=== PATIENT | female | born 1950 | race Caucasian/White ===

== ENCOUNTER 2020-02-10 20:12 | Emergency (ER) | payer MEDICARE, OTHER ==
[~2020-02-10] VITALS: Ht 165.1 cm; Wt 100.0 kg
[~2020-02-10 20:12] MED LIST: ALLO300T PO; ASPI-482 PO; COLC0.6T34 PO; DOXY50CA PO; GLIP5TAB22 PO; METF500T16 PO; METO-269 PO; NAPR-514 PO; TRIA1TAB3 PO
[2020-02-10 20:27] VITALS: BP 170/75
--- NOTE | 2020-02-10 20:34 | PHYS DOC ---
Past Medical History Past Medical History: Diabetes-Type II, Hypertension Drug Use: None General Adult EDM: Chief Complaint: KNEE INJURY HPI: HPI: Patient is a 70 year old female who felt a pop in her right knee behind her knee while walking down the stairs this evening. Patient states she has no pain at rest but 8 out of 10 pain that is nonradiating described as painful behind her knee when she puts weight on her leg. Patient states she has had some instability in that knee over the last couple weeks. Patient denies falling and injuring any other part of her body. Patient denies any focal weakness or numbness. Review of Systems: Review of Systems: Constitutional: Denies fever or chills Eyes: Denies change in visual acuity HENT: Denies sore throat Respiratory: Denies cough or shortness of breath Cardiovascular: Denies chest pain or edema GI: Denies abdominal pain, nausea, vomiting, or diarrhea : Denies dysuria Musculoskeletal: Denies back pain but complains of right knee pain Integument: Denies rash Neurologic: Denies headache or focal weakness Psychiatric: Denies depression or anxiety Heart Score: Risk Factors: Risk Factors: DM, Current or recent (<one month) smoker, HTN, HLP, family history of CAD, obesity. Risk Scores: Score 0 - 3: 2.5% MACE over next 6 weeks - Discharge Home Score 4 - 6: 20.3% MACE over next 6 weeks - Admit for Clinical Observation Score 7 - 10: 72.7% MACE over next 6 weeks - Early Invasive Strategies Allergies: Allergies: Allergies Coded Allergies Type Severity Reaction Last Updated Verified hydrocodone Allergy Unknown 05/14/16 Yes oxycodone Allergy Unknown 05/14/16 Yes Physical Exam: PE: Constitutional: Well developed, well nourished, no acute distress, non-toxic appearance. HENT: No trismus, external ears normal Eyes: Conjunctiva clear, EOMI Neck: Normal range of motion, no tenderness, supple, no stridor. 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 No obvious laxity of the joint. Mild pain with range of motion. No significant effusion. Neurovascular intact distally. No erythema or warmth to the joint. Remainder extremities unremarkable. Neurologic: Alert and oriented X 3, normal motor function, , no focal deficits noted. Psychologic: Affect normal, judgement normal, mood normal. Current Patient Data: Vital Signs: Vital Signs Date Time Temp Pulse Resp B/P (MAP) Pulse Ox O2 Delivery O2 Flow Rate FiO2 02/10/20 20:27 97.5 96 18 170/75 (106) 96 Room Air 97.5 EKG: EKG: [] Radiology/Procedures: Radiology/Procedures: [][facility] [address] [place] [address] IMAGING REPORT Signed PATIENT: МАРИЯ RANDLE ACCOUNT: [id number] : 1950 LOCATION: ER AGE: 70 SEX: F EXAM STATUS: PRE ER ORD. 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 COMPARISON: None. FINDINGS: No fractures are identified. Joint spaces are maintained. There are tiny osteophytes along the medial compartment. Alignment is normal. There is no joint effusion. Atherosclerotic calcifications are noted. IMPRESSION: 1. 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 Electronically signed by: Corona Powers MD (02/10/2020 8:39 PM) [facility] DICTATED and SIGNED BY: MANUEL POWERS MD DATE: 02/10/202038 Course & Med Decision Making: Course & Med Decision Making Pertinent Labs and Imaging studies reviewed. (See chart for details) [] X-rays are negative. Patient was likely has a ligamentous strain or or hamstring tendon injury. Patient was placed in immobilizer and crutches and discharged with outpatient follow-up with orthopedist. Farzaneh Disclaimer: Farzaneh Disclaimer: This electronic medical record was generated, in whole or in part, using a voice recognition dictation system. Departure Departure Impression: Primary Impression: Right knee sprain Disposition: HOME, SELF-CARE Condition: STABLE Referrals: RODNEY BENNETT MD (PCP) WSAHINGTON HIGUERA MD 2-3 days Patient Instructions: Crutch Use, Knee Immobilization, Knee Sprain Additional Instructions: EMERGENCY DEPARTMENT GENERAL DISCHARGE INSTRUCTIONS THANK YOU for coming to [facility] Emergency Department (ED) today and trusting us with your care. We trust that you had a positive experience in our Emergency Department. If you wish to speak to the department Management you can contact the supervisor roving department at . YOUR FOLLOW UP INSTRUCTIONS ARE FOLLOWS: Do you have a private doctor? If you do not have a private doctor, please ask for a resource list of physicians or clinics that may be able to assist you with follow up care. The Emergency Physician has interpreted your x-rays. The X-ray specialist will also review them. If there is a change in the findings you will be notified in 48 hours when at all possible. A lab test or lab culture may have been done, your results will be reviewed and you will be notified if you need a change in treatment. ADDITIONAL INSTRUCTIONS AND INFORMATION Your care today has been supervised by a physician who is specially trained in emergency care. Many problems require more than one evaluation for a complete diagnosis and treatment. We recommend that you schedule your follow up appointment as recommended to ensure complete treatment of your illness or injury. If you are unable to obtain follow up care and continue to have a problem, or if your condition worsens we recommend that you return to the ED. We are not able to safely determine your condition over the phone nor are we able to give sound medical advice over the phone. For these safety reasons, if you call for medical advice we will ask you to come to the ED for further evaluation If you have any questions regarding these discharge instructions please call the ED at . SAFETY INFORMATION In the interest of safety, wellness, and injury prevention; we encourage you to wear your seatbelt, if you smoke; quit smoking, and we encourage your family to use protective helmet for bicycling and other sporting events that present an increased risk for head injury. IF YOUR SYMPTOMS WORSEN OR NEW SYMPTOMS DEVELOP, OR YOU HAVE CONCERNS ABOUT YOUR CONDITION; OR IF YOUR CONDITION WORSENS WHILE YOU ARE WAITING FOR YOUR FOLLOW UP APPOINTMENT; EITHER CONTACT YOUR PRIMARY CARE DOCTOR, THE PHYSICIAN WHOSE NAME AND NUMBER YOU WERE GIVEN, OR RETURN TO THE ED IMMEDIATELY. Scripts Ibuprofen (IBUPROFEN) 600 Mg Tablet 600 MG PO PRN Q6HRS PRN for PAIN, #20 TAB take with food or milk Prov: AMARI VILLEGAS MD 02/10/20 Tramadol Hcl (ULTRAM) 50 Mg Tablet 1 TAB PO PRN Q6HRS PRN for pain MDD 4 Tablet(s) for 5 Days, #20 TAB 0 Refills Prov: AMARI VILLEGAS MD 02/10/20 Justicifation of Admission Dx: Justifications for Admission: Justification of Admission Dx: N/A AMARI VILLEGAS MD Feb 10, 2020 20:34
--- NOTE | 2020-02-10 20:42 | RAD ---
EXAM: Right knee, 3 views HISTORY: Right knee pain. COMPARISON: None. FINDINGS: No fractures are identified. Joint spaces are maintained. There are tiny osteophytes along the medial compartment. Alignment is normal. There is no joint effusion. Atherosclerotic calcifications are noted. IMPRESSION: 1. 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 Electronically signed by: Corona Powers MD (02/10/2020 8:39 PM) [facility]
[2020-02-10] MEDS ORDERED: TRAM-48 PO (20:53)
[2020-02-10] MEDS ORDERED: IBUP-1007 PO (20:53)
[2020-02-10] MEDS ORDERED: traMADol 50 MG TABLET PO ONE (21:00)
[2020-02-10] MEDS ORDERED: IBUPROFEN 200 MG TABLET. PO ONE (21:00)
== END 2020-02-10 21:39 | disposition home or self-care (01) ==
LOC: ER 20:12
DX: S83.91XA Sprain of unspecified site of right knee, initial encounter (principal); M17.11 Unilateral primary osteoarthritis, right knee; E11.9 Type 2 diabetes mellitus without complications; I10 Essential (primary) hypertension; Z88.5 Allergy status to narcotic agent; X50.9XXA Other and unspecified overexertion or strenuous movements or postures, initial encounter; Y93.01 Activity, walking, marching and hiking; Y92.89 Other specified places as the place of occurrence of the external cause; Y99.8 Other external cause status
CPT/HCPCS: 29505; 73562; 96372; 99283; 99285

== ENCOUNTER 2020-05-25 14:39 | Emergency (ER) | payer MEDICARE, OTHER ==
[~2020-05-25] VITALS: Ht 165.1 cm; Wt 90.0 kg
[~2020-05-25 14:39] MED LIST changes: +IBUP-1007 PO; +TRAM-48 PO
[2020-05-25 14:58] VITALS: BP 155/81
--- NOTE | 2020-05-25 17:13 | ED.ADGEN ---
Past Medical History Past Medical History: Diabetes-Type II, High Cholesterol, Hypertension Additional Past Medical Histor: GOUT Past Surgical History: No Surgical History Smoking Status: Never Smoker Alcohol Use: Occasionally Drug Use: None General Adult EDM: Chief Complaint: OTHER COMPLAINTS HPI: HPI: Patient is a 70 year old female, accompanied by her , who presents to the emergency room with request for a tetanus shot. Patient states that it about 1300 she dropped a pair of akil lawn amara on top of her toe which caused it to bleed. She denies any decreased range of motion of the affected toe. She currently rates her pain 1 out of 10 on the pain scale, she denies any alleviating factors, the pain is worse with palpation. She denies any numbness, tingling, weakness of the affected extremity. The patient states that her toe stop bleeding after she put a Band-Aid on it. Review of Systems: Review of Systems: Complete ROS is negative unless otherwise noted in HPI. Allergies: Allergies: Allergies Coded Allergies Type Severity Reaction Last Updated Verified hydrocodone Allergy Unknown 05/14/16 Yes oxycodone Allergy Unknown 05/14/16 Yes Physical Exam: PE: See Above Constitutional: Well developed, well nourished, no acute distress, non-toxic appearance. [] HENT: Normocephalic, atraumatic, bilateral external ears normal, nose normal. [] Eyes: PERRLA, EOMI, conjunctiva normal, no discharge. [] Neck: Normal range of motion, no stridor. [] Cardiovascular:Heart rate regular rhythm Lungs & Thorax: Respirations even and unlabored, no retractions, no respiratory distress Skin: Warm, dry, no erythema, no rash; bruise with scabbed abrasion noted to the top of the left great toe, no active bleeding, no visible foreign body. [] Extremities: Left great toe no cyanosis, ROM intact, no edema. [] Neurologic: Alert and oriented X 3, no focal deficits noted. [] Psychologic: Affect normal, judgement normal, mood normal. [] Current Patient Data: Vital Signs: Vital Signs Date Time Temp Pulse Resp B/P (MAP) Pulse Ox O2 Delivery O2 Flow Rate FiO2 05/25/20 14:58 97.9 94 16 155/81 (105) 94 Room Air 97.9 EKG: EKG: [] Heart Score: Risk Factors: Risk Factors: DM, Current or recent (<one month) smoker, HTN, HLP, family history of CAD, obesity. Risk Scores: Score 0 - 3: 2.5% MACE over next 6 weeks - Discharge Home Score 4 - 6: 20.3% MACE over next 6 weeks - Admit for Clinical Observation Score 7 - 10: 72.7% MACE over next 6 weeks - Early Invasive Strategies Radiology/Procedures: Radiology/Procedures: [] Course & Med Decision Making: Course & Med Decision Making Pertinent Labs and Imaging studies reviewed. (See chart for details) 70-year-old female presented to the emergency room with request for a tetanus s hot after toe injury that happened this afternoon. I offered the patient an x- ray of her toe however she declined and stated that she could move her toe and did not think it was broken. Patient was given a tetanus shot as requested, she could not remember when her last tetanus shot was. Patient encouraged to follow-up with her primary care doctor. Watch the affected area for increased swelling, redness, warmth, or drainage, if the symptoms develop she needs to return to the ER or follow-up with her primary care doctor for infection. [] Patient verbalized an understanding of home care, medications, follow-up, and return to ED instructions and was in agreement with the plan of care. Farzaneh Disclaimer: Farzaneh Disclaimer: This electronic medical record was generated, in whole or in part, using a voice recognition dictation system. Departure Departure Impression: Primary Impression: Need for Tdap vaccination Additional Impressions: Injury of right great toe Abrasion of great toe of right foot Disposition: 01 DC HOME SELF CARE/HOMELESS Condition: STABLE Referrals: RODNEY BENNETT MD (PCP) Patient Instructions: Abrasion, [id number]-Qnpl, VIS, Tetanus, Diphtheria (Td); Tetanus, Diphtheria, Pertussis (Tdap) - CDC Additional Instructions: Watch the affected area for increased swelling, redness, warmth, or drainage, if the symptoms develop she needs to return to the ER or follow-up with her primary care doctor for infection. [] Problem Qualifiers Additional Impressions: Injury of right great toe Encounter type: initial encounter Qualified Codes: S99.921A - Unspecified injury of right foot, initial encounter Abrasion of great toe of right foot Encounter type: initial encounter Qualified Codes: S90.411A - Abrasion, right great toe, initial encounter NIYAH TORRES RESIDENTIAL ROOFER HELPER May 25, 2020 17:13
[2020-05-25] MEDS ORDERED: DIPH,PERTUSS(ACELL),TET VAC/PF 0.5 ML SYRINGE. VAX IM ONE (17:30)
== END 2020-05-25 17:22 | disposition home or self-care (01) ==
LOC: ER 14:39
DX: S90.111A Contusion of right great toe without damage to nail, initial encounter (principal); Z88.5 Allergy status to narcotic agent; E11.9 Type 2 diabetes mellitus without complications; E78.00 Pure hypercholesterolemia, unspecified; I10 Essential (primary) hypertension; M10.9 Gout, unspecified; W20.8XXA Other cause of strike by thrown, projected or falling object, initial encounter; Y93.89 Activity, other specified; Y92.89 Other specified places as the place of occurrence of the external cause; Y99.8 Other external cause status
CPT/HCPCS: 90471; 90715; 99283

== ENCOUNTER → 2021-01-29 | Outpatient (CLI) | payer MEDICARE ==
--- NOTE | 2021-01-29 14:05 | RAD ---
EXAM: Chest, 2 views. HISTORY: Cough. COMPARISON: None. FINDINGS: 2 views of the chest are obtained. There is no infiltrate, pleural effusion or pneumothorax . The heart is normal in size. IMPRESSION: No acute pulmonary finding. Electronically signed by: Tori Schreiber MD (01/29/2021 2:03 PM) [id number]
== END ==
LOC: RAD 13:14
PROVIDERS: ATTEND Family Medicine
DX: R05 Cough (principal)
CPT/HCPCS: 71046

== ENCOUNTER → 2021-02-12 | Outpatient (CLI) | payer MEDICARE ==
--- NOTE | 2021-02-12 11:11 | RAD ---
MR#: [id number] Date of Study: 02/12/2021 Ordering Physician: YAMILET LEGER, Referring Physician: ESTER DARDEN Tech: APPROVED REPORT Test Type: Exercise Stress Nurse/Tech: Erick Hoyt RN Test Indications: Dyspnea on exertion x3 months. Cardiac History: HTN, See EMR. Medications: See EMR. Medical History: DM, See EMR. Resting ECG: ST Resting Heart Rate: 103 bpm Resting Blood Pressure: 151/80mmHg Pretest Chest Pain: No chest pain Nurse/Tech Notes Lungs CTA, and heart tones regular. Pt sating 91% on RA prior to start of test. Stress Symptoms Dyspnea & Fatigue. Pt's O2 sat dropped to 90% during 1.25 min of exercise. Pt denied any CP. Pt had d yspnea and fatigue with exertion, and needed to stop the test. POST EXERCISE Reason for Termination: Dyspnea & Fatigue Target HR: Yes Max HR: 126 bpm 101% of Maximum Predicted HR: 124 bpm Exercise duration: 1:25 min:sec, 1 Stage Exercise capacity: 4.6METs Max Blood Pressure: 203/86mmHg Blood Pressure response to exercise: Normal blood pressure response during stress. Heart Rate response to exercise: WNL Chest Pain: No. Arrhythmia: No. ST Change: No. INTERPRETATION Stress EKG Conclusion: No stress-induced EKG changes, although the evaluation is limited due to low e xercise load. Conclusion 1. 1. Normal resting EKG 2. 2. Severely diminished exercise capacity with approximately only 1.5 minutes of exercise on the t readmill. 4.6 metabolic equivalents achieved 3. 3. Stress EKG is unremarkable although it is quite limited due to low exercise capacity. 4. 4. Hypertensive blood pressure response with systolic blood pressure greater than 200. 5. 5. Consider alternative modality for ischemic evaluation if clinically indicated. Signed by : Boris Berg, Electronically Approved : 02/12/2021 11:10:18
== END ==
LOC: NM 08:47
PROVIDERS: ATTEND Internal Medicine Pulmonary Disease
DX: I10 Essential (primary) hypertension (principal); I25.9 Chronic ischemic heart disease, unspecified
CPT/HCPCS: 93017

== ENCOUNTER → 2021-03-13 | Outpatient (CLI) | payer MEDICARE ==
--- NOTE | 2021-03-13 16:18 | CARD ---
MR#: [id number] Date of Study: 03/13/2021 Ordering Physician: MARGARITA ORNELAS, Referring Physician: MARGARITA ORNELAS, Tech: Daniel Martinez [facility] APPROVED REPORT EXAM: Two-dimensional and M-mode echocardiogram with Doppler and color Doppler. Other Information Quality : FairHR: 92bpm Rhythm : NSRTechnically limited study due to body habitus. INDICATION Dyspnea RISK FACTORS Hypertension 2D DIMENSIONS Left Atrium(2D)3.8 (1.6-4.0cm)IVSd1.2 (0.7-1.1cm) Aortic Root(2D)2.9 (2.0-3.7cm)LVDd3.5 (3.9-5.9cm) LVOT Diameter1.7 (1.8-2.4cm)PWd1.2 (0.7-1.1cm) LVDs1.7 (2.5-4.0cm)FS (%) 51.5 % SV42.1 mlLVEF(%)83.6 (>50%) Aortic Valve AoV Peak Jose.129.3cm/sAoV VTI26.4cm AO Peak GR.6.7mmHgLVOT Peak Jose.126.1cm/s AO Mean GR.4mmHgAVA (VMAX)2.21cm2 Mitral Valve MV E Kslqtehw26.1cm/sMV E Peak Gr.7mmHg MV DECEL [id number] A Vjflukvb770.4cm/s MV E Mean Gr.3mmHgE/A Ratio0.7 MV A Fswaycwp240xq Pulmonary Valve PV Peak Tgvzxpqt227.3cm/s Tricuspid Valve TR P. Ctvoqmig977kb/sTR Peak Gr.16mmHg Pulmonary Vein S1 Ponnuppx54.7cm/sD2 Tmvjhpib32.4cm/s PVa sdostpvr070chvw LEFT VENTRICLE The left ventricle is normal size. There is mild concentric left ventricular hypertrophy. The left ve ntricular systolic function is normal and the ejection fraction is within normal range. EF 55% There is normal LV segmental wall motion. Transmitral Doppler flow pattern is Grade I-abnormal relaxation p attern. No left ventricle thrombus noted on this study. There is no ventricular septal defect visuali zed. There is no left ventricular aneurysm. There is no mass noted in the left ventricle. RIGHT VENTRICLE The right ventricle is normal size. There is normal right ventricular wall thickness. The right ventr icular systolic function is normal. ATRIA The left atrium size is normal. The right atrium size is normal. The interatrial septum is intact wit h no evidence for an atrial septal defect or patent foramen ovale as noted on 2-D or Doppler imaging. AORTIC VALVE Aortic valve not well seen. Doppler and Color Flow revealed no significant aortic regurgitation. Ther e is no significant aortic valvular stenosis. There is no aortic valvular vegetation. MITRAL VALVE Mitral annular calcification is mild. There is no evidence of mitral valve prolapse. There is no mitr al valve stenosis. Doppler and Color Flow revealed no mitral valve regurgitation noted. TRICUSPID VALVE The tricuspid valve is normal in structure and function. Doppler and Color Flow revealed trace tricus pid regurgitation. The PA pressure was estimated at 21 mmHg. There is no tricuspid valve prolapse or vegetation. There is no tricuspid valve stenosis. PULMONIC VALVE Pulmonic valve not well seen. Doppler and Color Flow revealed no pulmonic valvular regurgitation. The re is no pulmonic valvular stenosis. GREAT VESSELS The aortic root is normal in size. The ascending aorta is normal in size. The IVC is normal in size a nd collapses >50% with inspiration. PERICARDIAL EFFUSION There is no pleural effusion. There is no evidence of significant pericardial effusion. Critical Notification Critical Value: No <Conclusion> The left ventricular systolic function is normal and the ejection fraction is within normal range. EF 55% There is normal LV segmental wall motion. Signed by : Boris Berg, Electronically Approved : 03/13/2021 16:18:13
== END ==
LOC: ECHO 13:37
PROVIDERS: ATTEND Internal Medicine Cardiovascular Disease
DX: R06.09 Other forms of dyspnea (principal); I34.0 Nonrheumatic mitral (valve) insufficiency
CPT/HCPCS: 93306

== ENCOUNTER → 2021-05-14 | Day surgery (SDC) | payer MEDICARE ==
[~2021-05-14] VITALS: Ht 162.6 cm; Wt 81.0 kg
[~2021-05-14] MED LIST changes: +ALBUTEROL SULFATE 2.5 MG/3 ML NEBU. ONE; +ATOR10TA60 PO; +CALC-642 PO; +EMPA25TA PO; +EPINEPHrine 1 MG/ML VIAL INJ PRN; +EPINEPHrine 1 MG/ML VIAL ONE; +LIDOCAINE 2% VISCOUS 100 ML BOTTLE. ONE; +MULT-445 PO; +MULT-735 PO; +MV-M1TAB7 PO; +PROPOFOL 10 MG/ML (20ML) VIAL. IV ONE; +SITA100T PO; +THIA50TA4 PO; +UBID200C7 PO
[2021-05-14 09:59] VITALS: BP 152/70
[2021-05-14] MEDS: IV RINGERS,LACTATED 1000ML 1,000 ML IV SCH (10:15)
[2021-05-14] MEDS: ALBUTEROL SULFATE 2.5 MG/3 ML NEBU. NEB PRN (10:25)
[2021-05-14] MEDS: LIDOCAINE 4% TOPICAL 50 ML SOLUTION. MM PRN (10:30)
[2021-05-14] MEDS: LIDOCAINE 1% Multi-Dose 20 ML VIAL. INJ PRN (10:30)
[2021-05-14] MEDS: LIDOCAINE 2% VISCOUS 100 ML BOTTLE. MM PRN (10:30)
--- NOTE | 2021-05-14 10:56 | PDOC4 ---
PROCEDURE Procedure Procedure Bronchoscopy, bronchoalveolar lavage, right upper lobe, left upper lobe Indication: Patient presents with a progressive findings on CT chest, consolidated opacities, tree-in-bud formation. Undergoing a diagnostic bronchoscopy, risk benefits and alternatives reviewed with patient and . They consented to. Sedation: See anesthesia notes. Description: Timeout was performed prior to sedation. Vital signs and O2 saturations were maintained within normal limits throughout the procedure. The bronchoscope was passed through the right nares. The vocal cords were id entified moving bilaterally without any dysfunction. The bronchoscope was passed through the vocal cords into the proximal trachea which was normal. The right and left segments and subsegments were visualized there was no endobronchial lesion. There was minimal amount of thick white secretions. The scope was wedged into the right upper lobe and a bronchoalveolar lavage was performed. The return was clear. There is no evidence of heme. The scope was then wedged into the left upper lobe and a bronchoalveolar lavage was likewise performed. The return was clear. Findings #1 normal vocal cords #2 no endobronchial lesion #3 no purulent secretions Plan we'll await the BAL results, patient to follow-up with Dr. Jacome in the office on Wednesday Patient tolerated procedure well with no immediate complications, the above was discussed with the at the bedside. EMANUEL HOWELL MD May 14, 2021 10:56
[2021-05-14 11:27] VITALS: BP 119/56
== END | disposition home or self-care (01) ==
LOC: SURG 09:05
PROVIDERS: ATTEND Internal Medicine Pulmonary Disease
DX: R13.10 Dysphagia, unspecified (principal); I10 Essential (primary) hypertension; E78.00 Pure hypercholesterolemia, unspecified; E11.9 Type 2 diabetes mellitus without complications; M19.90 Unspecified osteoarthritis, unspecified site; Z85.828 Personal history of other malignant neoplasm of skin; Z79.82 Long term (current) use of aspirin; Z79.84 Long term (current) use of oral hypoglycemic drugs; Z79.899 Other long term (current) drug therapy; Z98.890 Other specified postprocedural states; Z72.89 Other problems related to lifestyle; Z88.8 Allergy status to other drugs, medicaments and biological substances
CPT/HCPCS: 31622; 31624; 36415; 87070; 87102; 87116; 87205; 87252; 87801; 88112; 88312; 94640; J0171; J2704; J3490; J7613

== ENCOUNTER 2021-06-25 09:11 | Emergency (ER) | payer MEDICARE ==
[~2021-06-25] VITALS: Ht 162.6 cm; Wt 80.5 kg
[~2021-06-25 09:11] MED LIST changes: -ALBUTEROL SULFATE 2.5 MG/3 ML NEBU. ONE; -EPINEPHrine 1 MG/ML VIAL INJ PRN; -EPINEPHrine 1 MG/ML VIAL ONE; -LIDOCAINE 2% VISCOUS 100 ML BOTTLE. ONE; -PROPOFOL 10 MG/ML (20ML) VIAL. IV ONE
[2021-06-25 10:40] LABS: BILIRUBIN,URINE NEGATIVE (NEG); CLARITY,URINE CLEAR; COLOR,URINE YELLOW; NITRITE,URINE NEGATIVE (NEG); PROTEIN,URINE NEGATIVE (NEG-TRACE); UROBILINOGEN,URINE 0.2 mg/dL (0.2 mg/dL)
[2021-06-25 10:59] LABS: BACTERIA,URINE FEW /HPF (0-FEW); RBC,URINE 0 /HPF (0-2)
--- NOTE | 2021-06-25 11:18 | RAD ---
EXAM: CT head and cervical spine without contrast, CT chest without contrast, CT thoracic spine recon struction INDICATION: Fall, left parietal occipital head pain, left rib bruising, T-spine pain COMPARISON: Chest radiograph 01/29/2021 TECHNIQUE: Axial CT imaging through the head, cervical spine, chest, and thoracic spine without intra venous contrast. Sagittal and coronal reformats were obtained. One or more of the following individualized dose reduction techniques were utilized for this examinat ion: 1. Automated exposure control 2. Adjustment of the mA and/or kV according to patient size 3. Use of iterative reconstruction technique. FINDINGS: CT head: Ventricles and sulci are normal. No intracranial hemorrhage, acute infarct, or mass lesion. Newton-whit e matter differentiation is maintained. No acute fracture. There are surgical changes of maxillary si nuses. There is low-density fluid in the maxillary sinuses and fluid or mucosal thickening in the fro ntal sinuses and ethmoid air cells. Mastoid air cells are clear. Globes and orbits are intact. Mild l eft parietal scalp contusion. CT cervical spine: No acute fracture. There is minimal listhesis at multiple levels, likely degenerative. Moderate disc space narrowing at C5-C6 through T1-T2. Milder disc space narrowing elsewhere. There is uncovertebral joint proliferation and disc osteophyte complexes at C5-C6 and C6-C7. There is mild canal narrowing and moderate bilateral foraminal narrowing at C5-C6 and C6-C7. Multilevel facet arthrosis with fusion of facets at C3-C4. Prevertebral soft tissues is normal. There are calcifications in the carotid bif urcations. CT thoracic spine: Acute T10 compression fracture with 25 percent vertebral body height loss and no retropulsion of lorena ex. No other fracture. There is 2 mm anterolisthesis of T4 and T5. 2 mm retrolisthesis of L1 on L2 an d L2-L3. There is mild disc space narrowing throughout the thoracic and visualized lumbar spine. No C T evidence of canal or foraminal narrowing. Paraspinous musculature is normal. CT chest: The heart is normal in size. No pericardial effusion. There are coronary artery calcifications. Thora cic aorta is normal in caliber. There are small mediastinal lymph nodes, nonspecific. There are tree- in-bud opacities in the upper lobes and scattered throughout the rest of the lungs. Mild pleural pare nchymal scarring in apices. No pleural effusion or pneumothorax. No axillary lymphadenopathy. There i s mild splenomegaly. Right nephrolithiasis. There is an acute T10 compression fracture with 25 percen t vertebral body height loss and no retropulsion of cortex. No rib fracture identified. IMPRESSION: 1. Acute T10 compression fracture with 25 percent vertebral body height loss and no retropulsion of c ortex. 2. No acute intracranial abnormality. 3. No acute osseous abnormality of the cervical spine. 4. Tree-in-bud opacities throughout the lungs, greatest in the upper lobes, consistent with bronchiol itis. 5. Incidental findings in the partially visualized upper abdomen included mild splenomegaly and right nephrolithiasis. Electronically signed by: Radha Shukla MD (06/25/2021 11:16 AM) [id number]
--- NOTE | 2021-06-25 11:56 | PHYS DOC ---
Past Medical History Past Medical History: Diabetes-Type II, High Cholesterol, Hypertension Additional Past Medical Histor: GOUT Past Surgical History: Other Additional Past Surgical Histo: Skin cancer removal Smoking Status: Never Smoker Alcohol Use: Occasionally Drug Use: None General Adult EDM: Chief Complaint: MECHANICAL FALL HPI: HPI: Patient is a 71 year old female presents to the emergency department complaining of right sided mid back pain for the past 3 days. Patient reports she slipped and fell on 07 June hitting this area of her back, again slipped and fell on 09 June hitting this area of her back again on a wall. Patient reports mild pain at that time that resolved, had no further problems until 3 days ago and noticed it was very difficult to move her upper back while ambulating or bending. Reports a 0 out of 10 at rest. Reports a 10 out of 10 when moving her back or ambulating. Denies pain with deep inspiration or expiration. Denies injury or falls since 09 June 2021. 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 Patient reports she did not really hurt up until 3 days ago so she had not seen her primary care physician Dr. Umana. Patient did report hitting her head and has some pain to palpation of the left occipital parietal region. Patient denies neck pain. Patient denies syncopal episodes or near syncopal episodes. Denies dizziness or visual changes. Denies chest pains, chest palpitations cough recent fever or chills. Patient denies other physical complaints or physical concerns. Review of Systems: Review of Systems: 14 body systems of review of systems have been reviewed. See HPI for pertinent positives and negative responses, otherwise all other systems are negative, nonpertinent or noncontributory. Constitutional: Negative except as outlined in HPI above. Skin: Negative except as outlined in HPI above. Eyes: Negative except as outlined in HPI above. HENT: Negative except as outlined in HPI above. Respiratory: Negative except as outlined in HPI above. Cardiovascular: Negative except as outlined in HPI above. GI: Negative except as outlined in HPI above. : Negative except as outlined in HPI above. Musculoskeletal: Negative except as outlined in HPI above. Integument: Negative except as outlined in HPI above. Neurologic: Negative except as outlined in HPI above. Endocrine: Negative except as outlined in HPI above. Lymphatic: Negative except as outlined in HPI above. Psychiatric: Negative except as outlined in HPI above. Heart Score: C/O Chest Pain: No Risk Factors: Risk Factors: DM, Current or recent (<one month) smoker, HTN, HLP, family history of CAD, obesity. Risk Scores: Score 0 - 3: 2.5% MACE over next 6 weeks - Discharge Home Score 4 - 6: 20.3% MACE over next 6 weeks - Admit for Clinical Observation Score 7 - 10: 72.7% MACE over next 6 weeks - Early Invasive Strategies Allergies: Allergies: Allergies Coded Allergies Type Severity Reaction Last Updated Verified hydrocodone Adverse Reaction Intermediate Nausea 06/25/21 Yes oxycodone Adverse Reaction Intermediate Nausea 06/25/21 Yes Physical Exam: PE: Constitutional: Well developed, well nourished, no acute distress, non-toxic appearance. 71-year-old female in no apparent distress. HENT: Normocephalic, atraumatic. Eyes: Conjunctiva normal, no discharge. Neck: Normal range of motion, no stridor. Cardiovascular: No cyanosis appreciated, distal cap refill less than 2 seconds. Lungs & Thorax: Patient is in no respiratory distress, no audible adventitious lung sounds appreciated. Lung sounds clear to auscultate all lung calderon, no pain to palpation of the anterior thorax, pain to palpation of the posterior thorax near T10 right ribs area with green-yellow bruising. Abdomen: Nontender, no abnormalities noted. Skin: Warm, dry, no erythema, no rash. See back section for focused skin examination. Back: No deformities appreciated, green-yellow bruising to T10 area of spine and progressing just to the right. No crepitus appreciated, no midline C-spine tenderness or L-spine tenderness appreciated to palpation, no pain to deep inspiration/expiration. Limited passive range of motion of spine related to pain. There is no pain at rest. Extremities: No tenderness, no cyanosis, no clubbing, ROM intact, no edema. Distal cap refill less than 2 seconds of bilateral upper and lower extremities, +2/4 pulses. Neurologic: Alert and oriented X 3, normal motor function, normal sensory function, no focal deficits noted. Psychologic: Affect normal, judgement normal, mood normal. Current Patient Data: Labs: Laboratory Tests Test 06/25/21 10:25 Urine Collection Type Unknown Urine Color Yellow Urine Clarity Clear Urine pH 7.0 (<5.0-8.0) Urine Specific [place] 1.020 (1.000-1.030) Urine Protein Negative mg/dL (NEG-TRACE) Urine Glucose (UA) >=1000 mg/dL (NEG) Urine Ketones (Stick) Negative mg/dL (NEG) Urine Blood Negative (NEG) Urine Nitrite Negative (NEG) Urine Bilirubin Negative (NEG) Urine Urobilinogen Dipstick 0.2 mg/dL (0.2 mg/dL) Urine Leukocyte Esterase Small (NEG) Urine RBC 0 /HPF (0-2) Urine WBC 1-4 /HPF (0-4) Urine Squamous Epithelial Cells Mod /LPF Urine Renal Epithelial Cells Few /LPF Urine Bacteria Few /HPF (0-FEW) Vital Signs: Vital Signs Date Time Temp Pulse Resp B/P (MAP) Pulse Ox O2 Delivery O2 Flow Rate FiO2 06/25/21 09:15 98.5 95 20 153/60 (91) 95 Room Air 98.5 EKG: EKG: [] Radiology/Procedures: Radiology/Procedures: REASON: Fall, left parieto-occipital head pain PROCEDURE: CT HEAD AND CERVICAL SPINE WO EXAM: CT head and cervical spine without contrast, CT chest without contrast, CT thoracic spine reconstruction INDICATION: Fall, left parietal occipital head pain, left rib bruising, T-spine pain COMPARISON: Chest radiograph 01/29/2021 TECHNIQUE: Axial CT imaging through the head, cervical spine, chest, and thoracic spine without intravenous contrast. Sagittal and coronal reformats were obtained. One or more of the following individualized dose reduction techniques were utilized for this examination: 1. Automated exposure control 2. Adjustment of the mA and/or kV according to patient size 3. Use of iterative reconstruction technique. FINDINGS: CT head: Ventricles and sulci are normal. No intracranial hemorrhage, acute infarct, or mass lesion. Newton-white matter differentiation is maintained. No acute fracture. There are surgical changes of maxillary sinuses. There is low-density fluid in the maxillary sinuses and fluid or mucosal thickening in the frontal sinuses and ethmoid air cells. Mastoid air cells are clear. Globes and orbits are intact. Mild left parietal scalp contusion. CT cervical spine: No acute fracture. There is minimal listhesis at multiple levels, likely degenerative. Moderate disc space narrowing at C5-C6 through T1-T2. Milder disc space narrowing elsewhere. There is uncovertebral joint proliferation and disc osteophyte complexes at C5-C6 and C6-C7. There is mild canal narrowing and moderate bilateral foraminal narrowing at C5-C6 and C6-C7. Multilevel facet arthrosis with fusion of facets at C3-C4. Prevertebral soft tissues is normal. There are calcifications in the carotid bifurcations. CT thoracic spine: Acute T10 compression fracture with 25 percent vertebral body height loss and no retropulsion of cortex. No other fracture. There is 2 mm anterolisthesis of T4 and T5. 2 mm retrolisthesis of L1 on L2 and L2-L3. There is mild disc space narrowing throughout the thoracic and visualized lumbar spine. No CT evidence of canal or foraminal narrowing. Paraspinous musculature is normal. CT chest: The heart is normal in size. No pericardial effusion. There are coronary artery calcifications. Thoracic aorta is normal in caliber. There are small mediastinal lymph nodes, nonspecific. There are tree-in-bud opacities in the upper lobes and scattered throughout the rest of the lungs. Mild pleural parenchymal scarring in apices. No pleural effusion or pneumothorax. No axillary lymphadenopathy. There is mild splenomegaly. Right nephrolithiasis. There is an acute T10 compression fracture with 25 percent vertebral body height loss and no retropulsion of cortex. No rib fracture identified. IMPRESSION: 1. Acute T10 compression fracture with 25 percent vertebral body height loss and no retropulsion of cortex. 2. No acute intracranial abnormality. 3. No acute osseous abnormality of the cervical spine. 4. Tree-in-bud opacities throughout the lungs, greatest in the upper lobes, consistent with bronchiolitis. 5. Incidental findings in the partially visualized upper abdomen included mild splenomegaly and right nephrolithiasis. Electronically signed by: Radha Shukla MD (06/25/2021 11:16 AM) [id number] Course & Med Decision Making: Course & Med Decision Making Pertinent Labs and Imaging studies reviewed. (See chart for details) 71-year-old female, vital signs reviewed, resents emergency department concerning right upper back pain for the past 3 days. Patient did report a fall back on the and 09 June 2021. Patient's physical examination consistent with possible T-spine/rib injury near the T8-9-10 and 11 area. Bruising is consistent with patient's timeline of original injury. Will order CT head and C-spine, chest with T-spine reconstruction. Urinalysis assay. CT of chest and T-spine reconstruction concerning for T10 compression fracture, there were other incidental findings, discussed with patient CT findings, will consult with neurosurgery for recommendation of ongoing care. Patient continues to be pain-free while at rest. Patient is amenable to ED planning. Spoke with neurosurgeon Dr. Lundberg's nurse practitioner Letha who recommended patient be discharged home, will have the splint clinic call them for a back brace at home, recommended follow-up with Dr. Lundberg this coming week, call today or tomorrow for an appointment. Discussed Dr. Carmen's recommendations with patient, prescription for tramadol, side effects, will also prescribe Zofran for intermittent nausea that patient reports she experiences when taking some pain medications, patient gave verbal understanding of discharge home instructions, follow-up with neurosurgeon soon, return to ER precautions or concerns. Also discussed with patient abnormal findings of CT scans, strict follow-up with Dr. Umana this week. Patient is amenable to ED discharge planning Discussed with the patient all findings and diagnostic testing as well as the need to follow-up with their primary care provider for further evaluation and treatment or return to the ED if any new or worsening symptoms. Strict return precautions were also discussed at length, the patient voiced understanding and agreement with the discharge planning. The patient was nontoxic in appearance, in no apparent distress, and hemodynamically stable at the time of disposition. Dragon Disclaimer: Dragrichy Disclaimer: This electronic medical record was generated, in whole or in part, using a voice recognition dictation system. Departure Departure Impression: Primary Impression: Compression fracture of T10 vertebra Qualified Codes: S22.070A - Wedge compression fracture of T9-T10 vertebra, initial encounter for closed fracture Additional Impression: Abnormal CT scan, chest Disposition: HOME / SELF CARE / HOMELESS Condition: GOOD Referrals: RODNEY DOE MD (PCP) KAREL LUNDBERG MD Patient Instructions: Back, Compression Fracture Additional Instructions: You were seen today for back pain for an initial fall towards the end of May. A CT scan of your head neck and chest and thoracic spine was perform ed today, there was a finding of a T10 compression fracture as we discussed. You will be contacted by the splint clinic to come in and have a splint fitted and applied for your back, please contact Dr. Lundberg today or tomorrow for an appointment this coming week. I am prescribing you tramadol for acute pain, please take as directed, I am also prescribing you a antinausea medication to take if you experience your stomach discomfort when taking pain medications otherwise you do not need to take this antinausea medication. We have discussed the incidental abnormal findings of your CT scans, please make an appointment to see Dr. Doe soon to review these abnormal findings. Return to the emergency department for worsening symptoms or other concerns. Thank you for visiting our Emergency Department. It was a pleasure taking care of you today in the emergency department and we appreciate you trusting us with your care. If any additional problems come up don't hesitate to return to visit us. Please follow up with your primary care provider so they can plan additional care if needed and know about the problem that you had. If symptoms worsen come back to the Emergency Department. Any concerning symptoms that start such as chest pain, shortness of air, weakness or numbness on one side of the body, running high fevers or any other concerning symptoms return to the ER. EMERGENCY DEPARTMENT GENERAL DISCHARGE INSTRUCTIONS Thank you for coming to [facility] Emergency Department (ED) today and trusting us with you care. We trust that you had a positive experience in our Emergency Department. If you wish to speak to the department management, you may call the Director at [phone]. YOUR FOLLOW UP INSTRUCTIONS ARE FOLLOWS: 1. Do you have a private Doctor? If you do not have a private doctor, please ask for a resource list of physicians or clinics that may be able to assist you with follow up care. 2. The Emergency Physicain has interpreted your x-rays. The X-Ray specialist will also review them. If there is a change in the findings, you will be notified in 48 hours when at all possible. 3. A lab test or culture has been done, your results will be reviewed and you will be notified if you need a change in treatment. ADDITIONAL INSTRUCTIONS AND INFORMATION: 1. Your care today has been supervised by a physician who is specially trained in emergency care. Many problems require more than one evaluation for a complete diagnosis and treatment. We recommend that you schedule your follow up appointment as recommended to ensure complete treatment of you illness or injury. If you are unable to obtain follow up care and continue to have a problem, or if your condition worsens, we recommend that you return to the ED. 2. We are not able to safely determine your condition over the phone nor are we able to give sound medical advice over the phone. For these safety reasons, if you call for medical advice we will ask you to come to the ED for further evaluation. 3. If you have any questions regarding these discharge instructions please call the ED at [phone]. SAFETY INFORMATION: In the interest of safety, wellness, and injury prevention; we encourage you to wear your sealbelt, if you smoke; quite smoking, and we encourage family to use a protective helmet for bicycling and other sporting events that present an increased risk for head injury. IF YOUR SYMPTOMS WORSEN OR NEW SYMPTOMS DEVELOP, OR YOU HAVE CONCERNS ABOUT YOUR CONDITION; OR IF YOUR CONDITION WORSENS WHILE YOU ARE WAITING FOR YOUR FOLLOW UP APPOINTMENT; EITHER CONTACT YOUR PRIMARY CARE DOCTOR, THE PHYSICIAN WHOSE NAME AND NUMBER YOU WERE GIVEN, OR RETURN TO THE ED IMMEDIATELY. Scripts Ondansetron (ONDANSETRON ODT) 4 Mg Tab.rapdis 1 TAB PO PRN Q6-8HRS for nausea, #16 TAB [address] 1 tablet on tongue to dissolve as needed for nausea every 6-8 hours. If you do not experience nausea, you do not need to take this medication. Prov: HILARIO RENNER APRN 06/25/21 Tramadol Hcl (TRAMADOL HCL) 50 Mg Tablet 50 MG PO Q6-8HRS PRN for SEVERE PAIN 7-10, #20 TAB 0 Refills Take 1 tablet every 6-8 hours for severe back pain. Prov: HILARIO RENNER APRN 06/25/21 HILARIO RENNER APRN Jun 25, 2021 11:56
[2021-06-25 12:42] VITALS: BP 157/81
[2021-06-25] MEDS ORDERED: TRAM50TA PO (12:59)
[2021-06-25] MEDS ORDERED: ONDA4TAB12 PO (12:59)
== END 2021-06-25 13:27 | disposition home or self-care (01) ==
LOC: ER 09:11
DX: S22.070A Wedge compression fracture of T9-T10 vertebra, initial encounter for closed fracture (principal); R91.8 Other nonspecific abnormal finding of lung field; E11.9 Type 2 diabetes mellitus without complications; E78.00 Pure hypercholesterolemia, unspecified; I10 Essential (primary) hypertension; M10.9 Gout, unspecified; W01.0XXA Fall on same level from slipping, tripping and stumbling without subsequent striking against object, initial encounter; Y93.89 Activity, other specified; Y92.89 Other specified places as the place of occurrence of the external cause; Y99.8 Other external cause status
CPT/HCPCS: 70450; 71250; 72125; 81001; 87086; 99284-25